=== PATIENT | male | born 1985 | race Caucasian/White ===

== ENCOUNTER 2017-11-02 06:42 | Emergency (ER) | payer OTHER ==
[2017-11-02 07:27] VITALS: BMI 45.9
[2017-11-02] MEDS ORDERED: IBUPROFEN 600 MG TABLET (FP) PO ONE ×2 (07:27→07:47)
--- NOTE | 2017-11-02 07:31 | PDOC ---
History of Present Illness - General Chief Complaint: Sore Throat Stated Complaint: SORE THROAT Time Seen by Provider: 11/02/17 07:26 History Source: Patient Exam Limitations: No Limitations - History of Present Illness Initial Comments: 11/02/17 07:29 Patient came for evaluation of right neck pain. States onset was approximately one week ago and is progressively worsened. States feels swollen, is difficult to swallow, and difficult to move his head. Denies any recent injury or exercise change. States had a game of soccer on Saturday but states throat and neck pain was hurting before that time. Denies any recent weight loss or gain, denies any exercise intolerance constipation, or jitteriness. Denies fever, denies any recent exposure, no one at home is sick. Has taken no medications for relief of same. 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 denies: fever/chills Past History - Travel Traveled outside of the country in the last 30 days: No Close contact w/someone who was outside of country & ill: No - Past Medical History Allergies/Adverse Reactions: Allergies Allergy/AdvReac Type Severity Reaction Status Date / Time Penicillins Allergy Verified 11/02/17 07:11 Home Medications: Ambulatory Orders NK [No Known Home Medication] 11/02/17 COPD: No - Suicide/Smoking/Psychosocial Hx Smoking History: Current some day smoker Number of Cigarettes Smoked Daily: 1 Information on smoking cessation initiated: No Review of Systems - Review of Systems Able to Perform ROS?: Yes Is the patient limited Frisian proficient: Yes Constitutional: Yes: Symptoms Reported, See HPI, Malaise. No: Fever, Loss of Appetite HEENTM: Yes: Symptoms Reported, See HPI, Nose Congestion, Throat Pain, Throat Swelling, Difficulty Swallowing. No: Dental Problems Respiratory: Yes: See HPI. No: Symptoms reported, Cough Musculoskeletal: Yes: Symptoms Reported, See HPI, Muscle Pain (neck) Neurological: Yes: Symptoms reported, See HPI. No: Headache All Other Systems: Reviewed and Negative *Physical Exam - Vital Signs Last Vital Signs Temp Pulse Resp BP Pulse Ox 99 F 88 18 126/71 99 11/02/17 07:08 11/02/17 07:08 11/02/17 07:08 11/02/17 07:08 11/02/17 07:08 - Physical Exam General Appearance: Yes: Nourished, Appropriately Dressed, Apparent Distress, Mild Distress HEENT: positive: HOLLIE, TMs Normal, Pharynx Normal (no redness, swelling or exudate noted to the posterior pharynx, no pierced anterior sinus drainage noted ). negative: Normal ENT Inspection, Tonsillar Erythema, Rhinorrhea, Sinus Tenderness Neck: positive: Tender, Trachea midline, Supple. negative: Normal Thyroid ( tender and swollen, no nodularity palpated, no bruits auscultated however is very tender to touch and 2 times larger than the left side. Is tender to swallow with palpation), Lymphadenopathy (R), Lymphadenopathy (L) (no clavicular nodes no obvious before meals or PC nodes) Respiratory/Chest: positive: Lungs Clear, Normal Breath Sounds Cardiovascular: positive: Regular Rhythm Gastrointestinal/Abdominal: positive: Normal Bowel Sounds, Soft. negative: Tender Musculoskeletal: positive: Normal Inspection Extremity: positive: Normal Capillary Refill, Normal Inspection, Normal Range of Motion Integumentary: positive: Normal Color, Dry, Warm, Pale Neurologic: positive: plaster mechanic II-XII NML intact, Fully Oriented, Alert, Normal Mood/ Affect, Normal Response, Motor Strength 5/5 ED Treatment Course - LABORATORY CBC & Chemistry Diagram: 11/02/17 07:57 Medical Decision Making - Medical Decision Making 11/02/17 10:07 Ultrasound reveals multiple nodules in the right thyroid anesthesiologist assistant certified with exam. However laboratory work does not reveal significant pathology and thyroid studies are normal. Patient will be discharged and encouraged to follow up with PMD/ENT for potential biopsy and reevaluation. *DC/Admit/Observation/Transfer Diagnosis at time of Disposition: Nodular thyroid disease - Discharge Dispostion Disposition: HOME Condition at time of disposition: Stable Decision to Admit order: No - Referrals Referrals: [facility] [Provider Group] Melvin Ochoa MD [Staff Physician] - - Patient Instructions Printed Discharge Instructions: DI for Thyroid Nodule Additional Instructions: Rest, drink lots of fluids: Teas, water, soups, Continue [id number] medications for symptomatic relief Tylenol or Motrin for fever and pain Followup with private physician in one to 2 days You need to be seen by an riveter helper/ ENT specialists for further testing and treatment as required Return to emergency department for worsened symptoms, fevers, dehydration - Post Discharge Activity Forms/Work/School Notes: Back to Work
[2017-11-02 08:28] LABS: BASO % 0.4 % (0-2.0); EOS % 1.8 % (0-4.5); HEMATOCRIT 47.5 % (35.4-49); HEMOGLOBIN 15.9 GM/dL (11.7-16.9); LYMPH % 17.2 % (8-40); MCH 28.1 pg (25.7-33.7); MCHC 33.5 g/dl (32.0-35.9); MEAN CELL VOLUME 83.9 fl (80-96); MEAN PLT VOLUME 9.4 fl (7.5-11.1); MONO % 8.9 % (3.8-10.2); NEUT % 71.7 % (42.8-82.8); PLATELET COUNT 162 K/MM3 (134-434); RBC 5.66 M/mm3 (4.00-5.60); RDW 14.6 % (11.9-15.9); WHITE BLOOD COUNT 7.3 K/mm3 (4.0-10.0)
[2017-11-02 10:10] VITALS: BP 125/82; PULSE 76; TEMP 98.3
== END 2017-11-02 10:10 | disposition home or self-care (01) ==
LOC: JER 06:42
DX: E04.1 Nontoxic single thyroid nodule (principal)
CPT/HCPCS: 36415; 76536-TC; 84443; 84479; 85025; 99282-25

== ENCOUNTER 2018-08-01 17:09 | Emergency (ER) | payer OTHER ==
--- NOTE | 2018-08-01 17:19 | PDOC ---
Rapid Medical Evaluation Chief Complaint: Pain, Acute Time Seen by Provider: 08/01/18 17:18 Medical Evaluation: Allergies Allergy/AdvReac Type Severity Reaction Status Date / Time Penicillins Allergy Verified 08/01/18 17:17 08/01/18 17:18 I have performed a brief in-person evaluation of this patient. The patient presents with a chief complaint of:L upper chest pain after getting elbowed in the chest playing soccer Pertinent physical exam findings:NAD I have ordered the following:EKG The patient will proceed to the ED for further evaluation. Discharge Disposition - Diagnosis Contusion, chest wall - Referrals - Patient Instructions - Post Discharge Activity
[2018-08-01 17:20] VITALS: BP 140/92; PULSE 91; TEMP 98.3; BMI 45.9
[2018-08-01] MEDS ORDERED: IBUPROFEN 400 MG TABLET (FP) PO ONE ×2 (18:29→18:32)
--- NOTE | 2018-08-01 18:35 | PDOC ---
History of Present Illness - General Chief Complaint: Pain, Acute Stated Complaint: STRUCK ON THE UPPER LT SIDE OF ABD Time Seen by Provider: 08/01/18 17:18 History Source: Patient Exam Limitations: No Limitations Past History - Past Medical History Allergies/Adverse Reactions: Allergies Allergy/AdvReac Type Severity Reaction Status Date / Time Penicillins Allergy Verified 08/01/18 17:17 Home Medications: Ambulatory Orders NK [No Known Home Medication] 11/02/17 COPD: No - Immunization History Immunization Up to Date: Yes - Suicide/Smoking/Psychosocial Hx Smoking History: Never smoked Number of Cigarettes Smoked Daily: 1 Hx Alcohol Use: No Drug/Substance Use Hx: No *Physical Exam - Vital Signs Last Vital Signs Temp Pulse Resp BP Pulse Ox 98.3 F 91 H 17 140/92 96 08/01/18 17:18 08/01/18 17:18 08/01/18 17:18 08/01/18 17:18 08/01/18 17:18 - Physical Exam General Appearance: No: Apparent Distress Neck: positive: Supple Respiratory/Chest: positive: Chest Tender (along anterior chest wall), Lungs Clear, Normal Breath Sounds. negative: Respiratory Distress Cardiovascular: positive: Regular Rhythm, Regular Rate, S1, S2. negative: Murmur Gastrointestinal/Abdominal: positive: Normal Bowel Sounds, Soft. negative: Tender, Distended, Guarding, Rebound Integumentary: positive: Normal Color. negative: Swelling, Ecchymosis Neurologic: positive: Alert Moderate Sedation - Procedure Monitoring Vital Signs: Procedure Monitoring Vital Signs Temperature 98.3 F 08/01/18 17:18 Pulse Rate 91 H 08/01/18 17:18 Respiratory Rate 17 08/01/18 17:18 Blood Pressure 140/92 08/01/18 17:18 O2 Sat by Pulse Oximetry (%) 96 08/01/18 17:18 ED Treatment Course - RADIOLOGY Radiology Studies Ordered: Category Date Time Status CHEST PA & LAT [RAD] Stat Radiology 08/01/18 17:59 Ordered Medical Decision Making - Medical Decision Making 33 y/o M with no sig pmh presents with L anterior chest wall pain after colliding with another player while playing soccer yesterday. Has not yet tried taking anything for the pain. Denies head/neck pain, loc, sob, abd pain, n/v. Likely contusion Will get CXR r/o fracture Motrin for pain 08/01/18 18:33 CXR neg for fracture stable for dc 08/01/18 18:47 *DC/Admit/Observation/Transfer Diagnosis at time of Disposition: Contusion, chest wall Qualifiers: Encounter type: initial encounter Laterality: left Qualified Code(s): S20.212A - Contusion of left front wall of thorax, initial encounter - Discharge Dispostion Disposition: HOME Condition at time of disposition: Stable Decision to Admit order: No - Referrals - Patient Instructions Printed Discharge Instructions: DI for Rib Contusion Additional Instructions: Thank you for choosing [facility]. It was a pleasure taking care of you. Your chest xray showed no fracture. You may take Motrin 600 mg every 6 hours by mouth as needed for mild to moderate pain. Take Motrin with food. Return to the Emergency Department if your symptoms worsen or persist or have other concerning symptoms. - Post Discharge Activity
== END 2018-08-01 18:51 | disposition home or self-care (01) ==
LOC: JERFT 17:09
DX: S20.212A Contusion of left front wall of thorax, initial encounter (principal); W51.XXXA Accidental striking against or bumped into by another person, initial encounter; Y93.66 Activity, soccer; Y92.322 Soccer field as the place of occurrence of the external cause; Y99.8 Other external cause status
CPT/HCPCS: 71046-TC-FY; 99281-25

== ENCOUNTER 2019-06-01 18:27 | Emergency (ER) | payer OTHER ==
[2019-06-01 18:52] VITALS: BP 144/91; PULSE 96; TEMP 98; BMI 48.7
--- NOTE | 2019-06-01 18:52 | PDOC ---
Rapid Medical Evaluation Time Seen by Provider: 06/01/19 18:50 Medical Evaluation: Allergies Allergy/AdvReac Type Severity Reaction Status Date / Time Penicillins Allergy Verified 08/01/18 17:17 06/01/19 18:50 CC: atraumatic left knee pain x1 day PE: suprapatellar tenderness. FAROM. Orders: nothing Patient will proceed to ER for further evaluation. Discharge Disposition - Diagnosis Knee pain - Referrals - Patient Instructions - Post Discharge Activity
[2019-06-01] MEDS ORDERED: IBUPROFEN 600 MG TABLET (FP) PO ONE ×2 (19:36→20:20)
--- NOTE | 2019-06-01 19:36 | PDOC ---
History of Present Illness - General Chief Complaint: Pain Stated Complaint: LEFT KNEE PAIN Time Seen by Provider: 06/01/19 18:50 History Source: Patient - History of Present Illness Initial Comments: 06/01/19 19:39 34-year-old male complaining of left knee pain for the last 1 day. Patient took 1 dose of Advil yesterday with no pain relief. Denies trauma/injury/fall. Past medical history of right meniscus repair. Past History - Past Medical History Allergies/Adverse Reactions: Allergies Allergy/AdvReac Type Severity Reaction Status Date / Time Penicillins Allergy Verified 06/01/19 18:52 Home Medications: Ambulatory Orders Ibuprofen 600 mg PO QID PRN #20 tablet 06/01/19 COPD: No - Immunization History Immunization Up to Date: Yes - Psycho Social/Smoking Cessation Hx Smoking History: Never smoked Number of Cigarettes Smoked Daily: 1 Hx Alcohol Use: No Drug/Substance Use Hx: No Review of Systems - Review of Systems Able to Perform ROS?: Yes Is the patient limited French proficient: No Constitutional: No: Symptoms Reported, See HPI, Chills, Diaphoresis, Fever, Loss of Appetite, Malaise, Night Sweats, Weakness, Weight Stable, Unintentional Wgt. Loss, Unexplained wgt Loss, Other Musculoskeletal: Yes: Other (left knee pain) *Physical Exam - Vital Signs Last Vital Signs Temp Pulse Resp BP Pulse Ox 98 F 96 H 18 144/91 99 06/01/19 18:50 06/01/19 18:50 06/01/19 18:50 06/01/19 18:50 06/01/19 18:50 - Physical Exam General Appearance: Yes: Appropriately Dressed Extremity: positive: Other (full rom. no swelling appreciated, able to raise leg and kick out leg) Integumentary: positive: Normal Color, Dry, Warm Neurologic: positive: Fully Oriented, Alert, Normal Mood/Affect ED Treatment Course - RADIOLOGY Radiology Studies Ordered: Category Date Time Status KNEE 2 POS-LEFT [RAD] Stat Radiology 06/01/19 19:36 Ordered ED Progress Note - Progress Note Progress Note: 06/01/19 19:49 A: left knee pain P: xray: no acute fracture Nsaids Discharge - Discharge Information Problems reviewed: Yes Clinical Impression/Diagnosis: Knee pain Qualifiers: Chronicity: acute Laterality: left Qualified Code(s): M25.562 - Pain in left knee Disposition: HOME - Additional Discharge Information Prescriptions: Ibuprofen 600 mg PO QID PRN #20 tablet PRN Reason: Pain - Follow up/Referral Referrals: Ez Siddiqi MD [Primary Care Provider] - Drake Paige DO [Staff Physician] - Call tomorrow - Patient Discharge Instructions Patient Printed Discharge Instructions: DI for Knee Pain Additional Instructions: Apply ice to the area. Use the Kenny bandage to the knee for comfort. It is important that you follow-up with an orthopedic doctor if the symptom does not resolve in a week Take ibuprofen every 6 hours with food as needed for pain. - Post Discharge Activity Work/Back to School Note: Back to Work
== END 2019-06-01 20:34 | disposition home or self-care (01) ==
LOC: JERFT 18:27
DX: M25.562 Pain in left knee (principal); Z88.0 Allergy status to penicillin
CPT/HCPCS: 73560-TC-LT-FY; 99281-25

== ENCOUNTER 2019-06-09 11:06 | Emergency (ER) | payer OTHER ==
[2019-06-09 11:29] VITALS: BP 140/79; PULSE 94; TEMP 98; BMI 48.7
[2019-06-09] MEDS ORDERED: OXYMETAZOLINE 0.05% NASAL SOLUTION 15 ML BOTTLE NS ONE (12:42)
--- NOTE | 2019-06-09 12:42 | PDOC ---
History of Present Illness - General Chief Complaint: Nasal Bleeding Stated Complaint: NOSEBLEED Time Seen by Provider: 06/09/19 11:40 History Source: Patient Exam Limitations: No Limitations Past History - Travel Traveled outside of the country in the last 30 days: No Close contact w/someone who was outside of country & ill: No - Past Medical History Allergies/Adverse Reactions: Allergies Allergy/AdvReac Type Severity Reaction Status Date / Time Penicillins Allergy Verified 06/09/19 11:29 Home Medications: Ambulatory Orders Ibuprofen 600 mg PO QID PRN #20 tablet 06/01/19 COPD: No - Immunization History Immunization Up to Date: Yes - Psycho Social/Smoking Cessation Hx Smoking History: Never smoked Number of Cigarettes Smoked Daily: 1 Hx Alcohol Use: No Drug/Substance Use Hx: No Review of Systems - Review of Systems Able to Perform ROS?: Yes Comments:: 06/09/19 13:03 CONSTITUTIONAL: Absent: fever, chills, diaphoresis, generalized weakness, malaise, loss of appetite HEENT: Present: nasal bleeding Absent: rhinorrhea, nasal congestion, throat pain, throat swelling, difficulty swallowing, mouth swelling, ear pain, eye pain, visual Changes RESPIRATORY: MUSCULOSKELETAL: Absent: myalgia, arthralgia, joint swelling SKIN: Absent: rash, itching, pallor NEUROLOGIC: Absent: headache, focal weakness or paresthesias, dizziness, unsteady gait, seizure, mental status changes, bladder or bowel incontinence PSYCHIATRIC: Absent: anxiety, depression, suicidal or homicidal ideation, hallucinations. Is the patient limited Anguillan proficient: No *Physical Exam - Vital Signs Last Vital Signs Temp Pulse Resp BP Pulse Ox 98 F 94 H 18 140/79 99 06/09/19 11:26 06/09/19 11:26 06/09/19 11:26 06/09/19 11:26 06/09/19 11:26 - Physical Exam 06/09/19 13:04 GENERAL: The patient is awake, alert, and fully oriented, in no acute distress. HEAD: Normal with no signs of trauma. EYES: Pupils equal, round and reactive to light, extraocular movements intact, sclera anicteric, conjunctiva clear. HEENT: No nasal congestion or rhinorrhea. No sinus Tenderness. Mucous membranes are moist. No tonsillar erythema, exudate or edema. Uvula is midline. No TM bulging , dullness or erythema. Scab noted to the R nare. No active bleeding. NECK: Neck is supple. No adenopathy. No meningismus. No stridor. EXTREMITIES: Normal range of motion, no edema. NEUROLOGICAL: Normal speech, normal gait. PSYCH: Normal mood, normal affect. SKIN: Warm, Dry, normal turgor, no rashes or lesions noted. Medical Decision Making - Medical Decision Making 06/09/19 13:07 The patient is a 34 y/o M with PMH of nosebleeds, presents to the ER today with a nosebleed. He states that it has been bleeding intermittently today he put cotton to stop the bleeding. He states that he has been getting more frequent nosebleeds now that the weather is gotten dry. He has never seen ENT before. Denies lightheadedness, dizziness, blood dripping down the back of his throat. There is no active bleeding at this time. A/P: Nasal bleeding On exam there is an active scab to the right Kesselbach's plexus Afrin was placed to reduce bleeding After Afrin patient started to bleed again. Second spray of Afrin given. Patient still bleeding despite direct pressure Rhino Rocket placed for anterior bleed and patient to be sent to ENT. No abx as this is not a posterior bleed. Pt was able to make an appointment for with ENT to have the packing removed. Discharge home I discussed the physical exam findings, ancillary test results and final diagnoses with the patient. I answered all of the patient's questions. The patient was satisfied with the care received and felt comfortable with the discharge plan and treatment plan. The Patient agrees to follow up with the primary care physician/specialist within 24-72 hours. Return precautions were given. Discharge - Discharge Information Problems reviewed: Yes Clinical Impression/Diagnosis: Nosebleed Condition: Stable Disposition: HOME - Admission No - Follow up/Referral Referrals: Melvin Ochoa MD [Staff Physician] - - Patient Discharge Instructions Patient Printed Discharge Instructions: DI for Nosebleed Additional Instructions: You were evaluated for your nosebleed today. Since did not stop bleeding a packing was placed. (Rhino Rocket) Do not remove the Rhino Rocket. Please follow-up with ENT on as scheduled to have the packing removed. Return to the ER for bleeding despite the Rhino Rocket, fever, or if you have any changes in your symptoms. - Post Discharge Activity Work/Back to School Note: Back to Work
== END 2019-06-09 14:09 | disposition home or self-care (01) ==
LOC: JERFT 11:06
PROC: 093K7ZZ Control Bleeding in Nasal Mucosa and Soft Tissue, Via Natural or Artificial Opening (ICD-10-PCS; principal; 2019-06-09)
DX: R04.0 Epistaxis (principal); Z88.0 Allergy status to penicillin
CPT/HCPCS: 30901; 99281-25